=== PATIENT | male | born 1980 | race Caucasian/White ===

== ENCOUNTER → 2018-06-05 | Outpatient (CLI) | payer OTHER ==
--- NOTE | 2018-06-05 13:52 | DIAGNOSTIC IMAGING REPORT ---
ULTRASOUND GUIDED FINE NEEDLE ASPIRATION OF LEFT LEVEL 2 CERVICAL LYMPH NODE CLINICAL HISTORY: Painful left cervical lymph node. COMPARISON STUDY: No previous studies for comparison. PROCEDURE: The patient reports a painful left cervical lymph node. This node was diminutive, overlying the sternocleidomastoid. An adjacent mildly enlarged left cervical lymph node was noted, measuring 1.4 x 0.7 cm which were shown on previous ultrasound. This was targeted for fine needle aspiration. The procedure, risks and benefits were discussed with the patient. The patient agreed to the procedure and informed written consent was obtained. The procedure was performed by Dr. Anderson following a timeout. Skin was prepped and draped in sterile fashion and local anesthesia was achieved with 1% lidocaine. Under direct ultrasound guidance, 2 25-gauge fine needle aspirations were performed. Samples were deemed preliminarily adequate by pathology. The patient tolerated the procedure well and no immediate complications were evident. IMPRESSION: Successful ultrasound guided fine needle aspiration of a 1.4 x 0.7 cm left cervical lymph node. Electronically signed by: Levy Anderson M.D. 06/05/2018 1:51 PM Dictated Date/Time: 06/05/2018 1:43 PM
== END | disposition home or self-care (01) ==
LOC: C.ULTR 12:33
PROVIDERS: ATTEND Internal Medicine
DX: R59.9 Enlarged lymph nodes, unspecified (principal); K21.9 Gastro-esophageal reflux disease without esophagitis; R07.9 Chest pain, unspecified; R94.31 Abnormal electrocardiogram [ECG] [EKG]; R52 Pain, unspecified